=== PATIENT | female | born 1955 | race Caucasian/White ===

== ENCOUNTER 2018-11-23 23:25 | Emergency (ER) | payer OTHER ==
[~2018-11-23] VITALS: Ht 167.6 cm; Wt 86.4 kg
[2018-11-23] MEDS ORDERED: METF500T13 PO (23:38)
[2018-11-23] MEDS ORDERED: LEVO300T21 PO (23:38)
[2018-11-23] MEDS ORDERED: MULTCAP PO (23:38)
[2018-11-23] MEDS ORDERED: ATOR1TAB19 PO (23:38)
[2018-11-23] MEDS ORDERED: CLAR10CA3 PO (23:38)
[2018-11-23] MEDS ORDERED: ASPI81TA85 PO (23:45)
[2018-11-24] MEDS ORDERED: NORCO, ANEXSIA 5/325MG TABLET (HYDROcodone/ACETAMINOPHEN) PO ONE (00:15)
[2018-11-24] MEDS ORDERED: ONDANSETRON 4 MG ORAL DISINTEGRATING TAB (Q0162 PER 1MG) PO ONE (00:15)
--- NOTE | 2018-11-24 00:17 | REPVR ---
EXAM: CT Cervical Spine Without Contrast EXAM DATE/TIME: 11/23/2018 11:43 PM CLINICAL HISTORY: 63 years old, female; Injury or trauma; Fall; Initial encounter; Concussion /head injury TECHNIQUE: Axial computed tomography images of the cervical spine without intravenous contrast. All CT scans at this facility use at least one of these dose optimization techniques: automated exposure control; mA and/or kV adjustment per patient size (includes targeted exams where dose is matched to clinical indication); or iterative reconstruction. Coronal and sagittal reformatted images were created and reviewed. COMPARISON: No relevant prior studies available. FINDINGS: Vertebrae: There is straightening of the normal cervical lordosis. The alignment of the cervical spine is within normal limits. The atlantooccipital alignment is normal. The atlantoaxial alignment is normal. There is no fracture or subluxation. The vertebral body heights are preserved. There is no cervical rib. Soft tissues: Unremarkable. No soft tissue fluid collection is noted. Prevertebral Space: No prevertebral soft tissue swelling is noted. Vasculature: There are mild atherosclerotic calcifications of the left carotid bulb. Lungs: There is minimal scarring at the lung apices. DISCS/SPINAL CANAL/NEURAL FORAMINA: C2-C3: The disc height is preserved. No disc herniation, spinal canal stenosis, or neural foraminal stenosis is identified. The facet joints are normal. C3-C4: The disc height is preserved. There is a broad-based posterior protrusion, mild osteoarthritis of the facet joints, and endplate spurs projecting anteriorly. There is mild spinal canal stenosis. No neural foraminal stenosis is noted. C4-C5: There is moderate loss of disc height, a broad-based posterior disc osteophyte complex, bilateral uncovertebral hypertrophy, and endplate spurs projecting anteriorly. There is mild right neural foraminal stenosis. No spinal canal stenosis or left neural foraminal stenosis is identified. The facet joints are unremarkable. C5-C6: There is moderate loss of disc height, a broad-based posterior disc osteophyte complex, bilateral uncovertebral hypertrophy, and endplate spurs projecting anteriorly. There is mild spinal canal stenosis and mild bilateral neural foraminal stenosis. The facet joints are unremarkable. C6-C7: There is moderate loss of disc height, a broad-based posterior disc osteophyte complexes, and endplate spurs projecting anteriorly. No spinal canal stenosis or neural foraminal stenosis is noted. The facet joints are unremarkable. C7-T1: The disc height is preserved. No disc herniation, spinal canal stenosis, or neural foraminal stenosis is identified. The facet joints are normal. T1-T2: The disc height is preserved. No disc herniation, spinal canal stenosis, or neural foraminal stenosis is identified. The facet joints are normal. T2-T3: The disc height is preserved. No disc herniation, spinal canal stenosis, or neural foraminal stenosis is identified. The facet joints are normal. IMPRESSION: 1. Straightening of the normal cervical lordosis, but no fracture or subluxation in the cervical spine. 2. C3-C4: Mild spinal canal stenosis. 3. C4-C5: Mild right neural foraminal stenosis. 4. C5-C6: Mild spinal canal stenosis and mild bilateral neural foraminal stenosis. Electronically signed by: Corona Graham On 11/24/2018 00:17:08 AM
--- NOTE | 2018-11-24 00:22 | REPVR ---
EXAM: CT Head Without Contrast EXAM DATE/TIME: 11/23/2018 11:43 PM CLINICAL HISTORY: 63 years old, female; Injury or trauma; Fall TECHNIQUE: Axial computed tomography images of the head/brain without contrast. All CT scans at this facility use at least one of these dose optimization techniques: automated exposure control; mA and/or kV adjustment per patient size (includes targeted exams where dose is matched to clinical indication); or iterative reconstruction. COMPARISON: CT Maxilofacial w/out contrast 11/24/2018 12:04:41 AM FINDINGS: Brain: There is no evidence for an acute large vessel territorial infarct, intracranial hemorrhage, mass, mass effect, or herniation. The cortical gyration pattern, basal ganglia, thalami, and cerebellum are normal in appearance. Brainstem: Unremarkable. Midline shift: There is no midline shift. Ventricles: Normal. No ventriculomegaly. Bones/joints: Normal. No acute fracture. Sinuses: Normal as visualized. No acute sinusitis. Mastoid air cells: Normal as visualized. No mastoid effusion. Soft tissues: There is a subgaleal hematoma along the left posterior superior aspect of the head. Vasculature: There are atherosclerotic calcifications of the internal carotid arteries. IMPRESSION: 1. Subgaleal hematoma along the left posterior superior aspect of the head. 2. Intact calvarium. No acute intracranial hemorrhage. Electronically signed by: Corona Graham On 11/24/2018 00:22:39 AM
--- NOTE | 2018-11-24 00:23 | REPVR ---
EXAM: CT Maxillofacial Without Contrast EXAM DATE/TIME: 11/24/2018 12:03 AM CLINICAL HISTORY: 63 years old, female; Injury or trauma; Fall; Initial encounter; Blunt trauma (contusions or hematomas); Jaw; Left; Additional info: Trauma/ left TMJ TECHNIQUE: Axial computed tomography images of the face without intravenous contrast. All CT scans at this facility use at least one of these dose optimization techniques: automated exposure control; mA and/or kV adjustment per patient size (includes targeted exams where dose is matched to clinical indication); or iterative reconstruction. Coronal and sagittal reformatted images were created and reviewed. COMPARISON: No relevant prior studies available. FINDINGS: Orbits: The globes and orbits are intact and normal in appearance. Mastoid air cells: Normal as visualized. No mastoid effusion. Sinuses: There is mild mucosal thickening at the base of the left maxillary sinus. The rest of the sinuses are clear. There are no air-fluid levels in the sinuses. Bones/joints: No acute fracture. The temporomandibular joints are unremarkable. Soft tissues: Unremarkable. No significant facial soft tissue swelling. IMPRESSION: No fracture or dislocation of the facial bones. Electronically signed by: Corona Graham On 11/24/2018 00:22:56 AM
[2018-11-24 01:21] VITALS: BP 144/67
--- NOTE | 2018-11-27 08:41 | ED PDOC ---
Post-Departure Follow-Up radiology report faxed to Carl Heller Sarah MD Nov 27, 2018 08:41
== END 2018-11-24 01:36 | disposition home or self-care (01) ==
LOC: M ED 23:25
DX: S00.83XA Contusion of other part of head, initial encounter (principal); W00.0XXA Fall on same level due to ice and snow, initial encounter; Y92.410 Unspecified street and highway as the place of occurrence of the external cause; I10 Essential (primary) hypertension; E11.9 Type 2 diabetes mellitus without complications; E03.9 Hypothyroidism, unspecified; R11.10 Vomiting, unspecified; Z88.8 Allergy status to other drugs, medicaments and biological substances; Z79.899 Other long term (current) drug therapy; Z79.82 Long term (current) use of aspirin; Z79.84 Long term (current) use of oral hypoglycemic drugs
CPT/HCPCS: 70450; 70486; 72125; 99284; Q0162

== ENCOUNTER → 2019-03-07 | Outpatient (CLI) | payer OTHER ==
[~2019-03-07] MED LIST: ASPI81TA85 PO; ATOR1TAB19 PO; CLAR10CA3 PO; LEVO300T21 PO; METF500T13 PO; MULTCAP PO
--- NOTE | 2019-03-23 13:56 | REPMRS ---
Patient History The patient states she has not had a clinical breast exam in over a year. Family history of breast cancer at age 67 in mother. Taking unspecified hormones for 7 years. Patient states she had a left breast biopsy at age 19 that was benign. 3D TOMOSYNTHESIS WAS PERFORMED. Digital Mammo Screening Bilat: March 07, 2019 - Exam #: [id number] Bilateral CC and MLO view(s) were taken. Technologist: Valery Peterson, Technologist FINDINGS: The breast tissue is heterogeneously dense. This may lower the sensitivity of mammography. There has been no change in the appearance of the mammogram from the prior studies. There is a moderate amount of residual fibroglandular tissue which is fairly symmetric. There is no interval development of dominant mass, areas of architectural distortion, or clustered microcalcification typical of malignancy. Assessment: BI-RADS/ACR category 1 mammogram. Negative Mammogram. Recommendation Routine screening mammogram in 1 year (for women over age 40). This mammogram was interpreted with the aid of an FDA-approved computer-aided dectection system. Electronically Signed By: Ricardo Watt MD 03/23/19 [id number]
== END ==
LOC: M RAD 09:11
PROVIDERS: ATTEND Nurse Practitioner Family
DX: Z12.31 Encounter for screening mammogram for malignant neoplasm of breast (principal); Z80.3 Family history of malignant neoplasm of breast

== ENCOUNTER → 2019-11-24 | Outpatient (REF) | payer OTHER | LOC: M LAB REF 15:57 | PROVIDERS: ATTEND Physician Assistant | DX: R05 Cough (principal) ==

== ENCOUNTER → 2020-12-01 | Outpatient (CLI) | payer OTHER ==
[~2020-12-01] MED LIST changes: -ASPI81TA85 PO; +ASPI81TA86 PO; +AZEL1SPR3 NARES; +D31000TA2 PO; +ECOT81TA5 PO; +FLON1SPR NARES; +IBUP1TAB7 PO; +LEVO137T2 PO; +MONT5TAB2 PO; +ONETAB20 PO; +RA T500C2 PO; +VITA-243 PO
== END ==
LOC: M LABSMTC 09:01
PROVIDERS: ATTEND Anesthesiology
DX: Z01.812 Encounter for preprocedural laboratory examination (principal); Z20.828 Contact with and (suspected) exposure to other viral communicable diseases

== ENCOUNTER 2020-12-05 09:28 | Day surgery (SDC) | payer OTHER ==
[~2020-12-05] VITALS: Ht 167.6 cm; Wt 96.7 kg
[~2020-12-05 09:28] MED LIST changes: +LIDOCAINE 2% 100MG/5ML SDV (FOR ANES.) As Ordered ONE; +NS 1,000 ML IV ONE; +propofoL 200 MG/20 ML VIAL As Ordered ONE
[2020-12-05] MEDS ORDERED: TRAM50TA2 PO (10:10)
--- NOTE | 2020-12-05 10:58 | ROOR ---
Patient Name: Ellie Valentino Procedure Date: 12/05/2020 10:19 AM Date of : 1955 Age: 65 [facility]: [facility] Gender: Female Note Status: Finalized Procedure: Upper GI endoscopy Indications: Heartburn Providers: DO Ashly Arias MD: Carl Heller Requesting Provider: Medicines: Propofol per Anesthesia Complications: No immediate complications. Procedure: Pre-Anesthesia Assessment: - Prior to the procedure, a History and Physical was performed, and patient medications and allergies were reviewed. The patient is competent. The risks and benefits of the procedure and the sedation options and risks were discussed with the patient. All questions were answered and informed consent was obtained. Patient identification and proposed procedure were verified by the physician, the nurse, the ranch hand and the lens coating technician in the endoscopy suite. Mental Status Examination: alert and oriented. Airway Examination: normal oropharyngeal airway and neck mobility. Respiratory Examination: clear to auscultation. CV Examination: normal. Prophylactic Antibiotics: The patient does not require prophylactic antibiotics. Prior Anticoagulants: The patient has taken no previous anticoagulant or antiplatelet agents. ASA Grade Assessment: II - A patient with mild systemic disease. After reviewing the risks and benefits, the patient was deemed in satisfactory condition to undergo the procedure. The anesthesia plan was to use monitored anesthesia care (MAC). Immediately prior to administration of medications, the patient was re-assessed for adequacy to receive sedatives. The heart rate, respiratory rate, oxygen saturations, blood pressure, adequacy of pulmonary ventilation, and response to care were monitored throughout the procedure. The physical status of the patient was re-assessed after the procedure. The Endoscope was introduced through the mouth, and advanced to the second part of duodenum. The upper GI endoscopy was accomplished without difficulty. The patient tolerated the procedure well. Findings: Two non-bleeding cratered gastric ulcers with adherent clot were found in the prepyloric region of the stomach. The largest lesion was 4 mm in largest dimension. Biopsies were taken with a cold forceps for Helicobacter pylori testing. Estimated blood loss was minimal. Impression: - Non-bleeding gastric ulcers with adherent clot. Biopsied. Recommendation: - Patient has a contact number available for emergencies. The signs and symptoms of potential delayed complications were discussed with the patient. Return to normal activities tomorrow. Written discharge instructions were provided to the patient. - Return to my office PRN. - Telephone my office for pathology results in 1 week. Procedure Code(s): --- Professional --- 44637, Esophagogastroduodenoscopy, flexible, transoral; with biopsy, single or multiple Diagnosis Code(s): --- Professional --- K25.4, Chronic or unspecified gastric ulcer with hemorrhage R12, Heartburn CPT copyright 2019 [employer]. All rights reserved. The codes documented in this report are preliminary and upon after school program director review may be revised to meet current compliance requirements. Santhosh Lane DO 12/05/2020 10:58:04 AM Electronically signed by Santhosh Lane DO Number of Addenda: 0 Note Initiated On: 12/05/2020 10:19 AM Estimated Blood Loss: Estimated blood loss was minimal.
[2020-12-05 11:00] VITALS: BP 113/52
--- NOTE | 2020-12-05 11:00 | ROOR ---
Patient Name: Ellie Valentino Procedure Date: 12/05/2020 10:19 AM Date of : 1955 Age: 65 Room: [facility] Gender: Female Note Status: Finalized Procedure: Colonoscopy Indications: Screening for colorectal malignant neoplasm Providers: DO Ashly Arias MD: Carl Heller Requesting Provider: Medicines: Propofol per Anesthesia Complications: No immediate complications. Procedure: Pre-Anesthesia Assessment: - Prior to the procedure, a History and Physical was performed, and patient medications and allergies were reviewed. The patient is competent. The risks and benefits of the procedure and the sedation options and risks were discussed with the patient. All questions were answered and informed consent was obtained. Patient identification and proposed procedure were verified by the physician, the nurse, the doorperson and the nuclear reactor technician in the endoscopy suite. Mental Status Examination: alert and oriented. Airway Examination: normal oropharyngeal airway and neck mobility. Respiratory Examination: clear to auscultation. CV Examination: normal. Prophylactic Antibiotics: The patient does not require prophylactic antibiotics. Prior Anticoagulants: The patient has taken no previous anticoagulant or antiplatelet agents. ASA Grade Assessment: II - A patient with mild systemic disease. After reviewing the risks and benefits, the patient was deemed in satisfactory condition to undergo the procedure. The anesthesia plan was to use monitored anesthesia care (MAC). Immediately prior to administration of medications, the patient was re-assessed for adequacy to receive sedatives. The heart rate, respiratory rate, oxygen saturations, blood pressure, adequacy of pulmonary ventilation, and response to care were monitored throughout the procedure. The physical status of the patient was re-assessed after the procedure. The Colonoscope was introduced through the anus and advanced to the cecum, identified by appendiceal orifice and ileocecal valve. The colonoscopy was performed without difficulty. The patient tolerated the procedure well. Findings: Non-bleeding internal hemorrhoids were found during retroflexion. The hemorrhoids were mild and Grade II (internal hemorrhoids that prolapse but reduce spontaneously). Multiple small and large-mouthed diverticula were found in the sigmoid colon. Impression: - Non-bleeding internal hemorrhoids. - Diverticulosis in the sigmoid colon. - No specimens collected. Recommendation: - Patient has a contact number available for emergencies. The signs and symptoms of potential delayed complications were discussed with the patient. Return to normal activities tomorrow. Written discharge instructions were provided to the patient. - Repeat colonoscopy in 5-10 years for screening purposes. - Return to my office PRN. Procedure Code(s): --- Professional --- G0121, Colorectal cancer screening; colonoscopy on individual not meeting criteria for high risk Diagnosis Code(s): --- Professional --- Z12.11, Encounter for screening for malignant neoplasm of colon K64.1, Second degree hemorrhoids K57.30, Diverticulosis of large intestine without perforation or abscess without bleeding CPT copyright 2019 [employer]. All rights reserved. The codes documented in this report are preliminary and upon brokerage manager review may be revised to meet current compliance requirements. Santhosh Lane DO 12/05/2020 11:00:02 AM Electronically signed by Santhosh Lane DO Number of Addenda: 0 Note Initiated On: 12/05/2020 10:19 AM Estimated Blood Loss: Estimated blood loss: none.
== END 2020-12-05 11:16 | disposition home or self-care (01) ==
LOC: M OPP 09:28
PROVIDERS: ATTEND Surgery
DX: Z12.11 Encounter for screening for malignant neoplasm of colon (principal); R12 Heartburn; K64.1 Second degree hemorrhoids; K57.30 Diverticulosis of large intestine without perforation or abscess without bleeding; D13.1 Benign neoplasm of stomach; K25.4 Chronic or unspecified gastric ulcer with hemorrhage; E78.5 Hyperlipidemia, unspecified; E11.9 Type 2 diabetes mellitus without complications; E03.9 Hypothyroidism, unspecified; M19.90 Unspecified osteoarthritis, unspecified site; M79.7 Fibromyalgia; G47.30 Sleep apnea, unspecified; Z87.891 Personal history of nicotine dependence; Z88.8 Allergy status to other drugs, medicaments and biological substances; Z79.84 Long term (current) use of oral hypoglycemic drugs; Z79.899 Other long term (current) drug therapy
CPT/HCPCS: 43239; 88305; G0121

== ENCOUNTER → 2021-04-05 | Outpatient (CLI) | payer OTHER ==
[~2021-04-05] MED LIST changes: -LIDOCAINE 2% 100MG/5ML SDV (FOR ANES.) As Ordered ONE; +MONT10TA10 PO; -MONT5TAB2 PO; -NS 1,000 ML IV ONE; +TRAM50TA2 PO; -propofoL 200 MG/20 ML VIAL As Ordered ONE
--- NOTE | 2021-04-05 09:01 | REPMRS ---
Patient History The patient states she has not had a clinical breast exam in over a year. Patient is postmenopausal. Family history of breast cancer at age 67 in mother. Benign lumpectomy of the left breast. Taking unspecified hormones for 7 years. Patient states no breast complaints today. Patient has signed MRS History Sheet. Digital Woman Screen Mammo: April 05, 2021 - Exam #: [id number] Bilateral CC and MLO view(s) were taken. Technologist: Ciarra Jiménez, Full Stack Developer Prior study comparison: March 07, 2019, bilateral digital mammo screening bilat, performed at [facility]. October 09, 2015, bilateral digital mammo screening bilat, performed at [facility]. FINDINGS: There are scattered fibroglandular densities. The Volpara volumetric breast density category is:B. There has been no change in the appearance of the mammogram from the prior studies. There is a mild amount of scattered fibroglandular density which is fairly symmetric. There is no interval development of dominant mass, architectural distortion, or grouped microcalcification suggestive of malignancy. 3-D tomosynthesis shows no additional findings. Assessment: BI-RADS/ACR category 1 mammogram. Negative Mammogram. Recommendation Routine screening mammogram of both breasts in 1 year (for women over age 40). This patient's [facility] Lifetime Breast Cancer Risk is estimated at 10.2 %. This mammogram was interpreted with the aid of an FDA-approved computer-aided dectection system. Electronically Signed By: Ricardo Watt MD 04/05/21 0941
== END ==
LOC: M WHC 08:02
PROVIDERS: ATTEND Family Medicine
DX: Z12.31 Encounter for screening mammogram for malignant neoplasm of breast (principal); Z80.3 Family history of malignant neoplasm of breast

== ENCOUNTER → 2021-04-30 | Outpatient (CLI) | payer OTHER ==
--- NOTE | 2021-04-30 16:51 | REP ---
INDICATION: DENSE BREAST. COMPARISON: None TECHNIQUE: Bilateral whole breast screening ultrasound was performed using anatomical intelligence and shear wave elastography. FINDINGS: Right breast: At the 11 o'clock position 3 cm from the nipple there is a mixed echo 0.7 x 0.4 x 0.5 cm sized partially cystic nodule which does not exhibit posterior wall enhancement or increased through transmission and has slightly irregular margins. Shear wave elastography was performed and shows kPa values which are relatively low. Left breast: At the 4 o'clock position 6 cm from the nipple there is a 0.5 x 0.2 by 0.7 cm sized anechoic structure which exhibits posterior wall enhancement and increased through transmission. It is smoothly marginated. Shear wave elastography shows low kPa values IMPRESSION: 1. Complex appearing cystic and somewhat solid right breast nodule as described above and for which ultrasound-guided biopsy is recommended. ACR category 4 2. Benign left breast cyst as described above. <Electronically signed by Get Mcarthur > 04/30/21 [id number]
== END ==
LOC: M WHC 14:00
PROVIDERS: ATTEND Family Medicine
DX: R92.2 Inconclusive mammogram (principal); N63.10 Unspecified lump in the right breast, unspecified quadrant; N60.02 Solitary cyst of left breast

== ENCOUNTER → 2021-05-28 | Outpatient (CLI) | payer OTHER ==
[~2021-05-28] MED LIST changes: +HAIR1CHW PO; +LISI2.5T2 PO
[2021-05-28 10:20] VITALS: BP 144/82
--- NOTE | 2021-05-28 10:34 | REP ---
INDICATION: RIGHT BREAST NODULE/US GUIDED BX/CK CLIP PLACEMENT. COMPARISON: Comparison mammography April 05, 2021 and comparison sonography April 30, 2021. Comparison sonography was positive and an ultrasound-guided biopsy was recommended. TECHNIQUE: Craniocaudal and mediolateral views of the right breast are obtained status post ultrasound-guided needle biopsy and clip placement. This mammogram was interpreted with the aid of an FDA-approved computer-aided detection system. FINDINGS: Scattered fibroglandular elements are seen. There is some post biopsy air in the lateral aspect of the right breast. A marker clip is seen in the right breast middle 3rd laterally at approximately the 9 o'clock position. There was not a mammographically visible target on the April 05, 2021 mammogram. The Volpara volumetric breast density pattern is b. : IMPRESSION: Marker clip in the 9 o'clock position right breast middle 3rd post ultrasound-guided needle biopsy. RECOMMENDATION: None. Follow-up and treatment depending on biopsy results. <Electronically signed by Ricardo Watt > 05/28/21 0345
--- NOTE | 2021-05-28 16:52 | REP ---
INDICATION: RT BREAST NODULE/US GUIDED BX. COMPARISON: None. TECHNIQUE: The procedure was performed under the direct supervision of Dr. Watt. The patient has a history of a 0.7 x 0.4 x 0.5 cm sized partially cystic nodule in the 11 o'clock position of the right breast seen on a previous ultrasound dated 04/30/2021. The risks and benefits of the procedure were explained to the patient and informed consent was obtained. The right breast nodule was localized using ultrasound guidance. The skin was prepped and draped in a sterile fashion. 1% Xylocaine was used as a local anesthetic. Using ultrasound guidance a 14 gauge coaxial biopsy needle was inserted and6 core biopsy samples were obtained. A marker clip (HydroMARK shape 3) was placed at the biopsy site The patient tolerated the procedure well and there were no immediate complications. After the appropriate amount of monitored convalescence, the patient was discharged from the department. Estimated blood loss: Less than 1 mL FINDINGS: None IMPRESSION: Ultrasound-guided right breast biopsy with marker clip placement. (HydroMARK shape 3) <Electronically signed by Randal Washington > 05/28/21 1636 <Electronically signed by Ricardo Watt > 05/28/21 1649
== END ==
LOC: M WHCPRO 07:30
PROVIDERS: ATTEND Family Medicine
DX: N60.11 Diffuse cystic mastopathy of right breast (principal); R92.8 Other abnormal and inconclusive findings on diagnostic imaging of breast

== ENCOUNTER → 2022-01-08 | Outpatient (CLI) | payer OTHER ==
[~2022-01-08] MED LIST changes: -LISI2.5T2 PO; +LISI2.5T9 PO; -MONT10TA10 PO; +MONT10TA97 PO
== END ==
LOC: M PLAIMG 07:38
PROVIDERS: ATTEND Family Medicine
DX: M51.36 Other intervertebral disc degeneration, lumbar region (principal)

== ENCOUNTER → 2022-06-05 | Outpatient (CLI) | payer OTHER ==
[~2022-06-05] MED LIST changes: -D31000TA2 PO; +VITA100093 PO
== END ==
LOC: M WHC 12:23
PROVIDERS: ATTEND Family Medicine
DX: Z12.31 Encounter for screening mammogram for malignant neoplasm of breast (principal)

== ENCOUNTER → 2022-07-02 | Outpatient (CLI) | payer OTHER | LOC: M RAD 10:20 | DX: R05.3 Chronic cough (principal) ==